=== PATIENT | female | born 1960 | race Caucasian/White ===

== ENCOUNTER 2017-01-18 18:38 | Emergency (ER) | payer OTHER ==
[2017-01-18 18:48] VITALS: BP 108/81; PULSE 90; TEMP 97.5; BMI 20.1
[2017-01-18 20:17] LABS: ALBUMIN 3.5 g/dl (3.4-5.0); ANION GAP 8 (8-16); BILIRUBIN,TOTAL 0.2 mg/dL (0.2-1.0); CALCIUM 8.5 mg/dL (8.5-10.1); CO2 28 mmol/L (21-32); COCKROFT - GAULT 72.3605; CREATININE 0.7 mg/dL (0.55-1.02); GLUCOSE,RANDOM 126 mg/dL (74-106); SGOT/AST 30 U/L (15-37); SGPT/ALT 28 U/L (12-78); TOT PROT 7.8 g/dl (6.4-8.2)
[2017-01-18 20:20] LABS: ALK PHOS 96 U/L (45-117); TROPONIN I < 0.02 ng/ml (0.00-0.05)
[2017-01-18 20:35] LABS: BASOPHIL 0.5 % (0-2.0); EOSINOPHIL 1.1 % (0-4.5); MCH 30.2 pg (25.7-33.7); MCHC 32.8 g/dl (32.0-36.0); MEAN CELL VOLUME 92.2 fl (80-96); MEAN PLT VOLUME 10.8 fl (7.5-11.1); NEUTROPHILS 64.7 % (42.8-82.8); PLATELET COUNT 205 K/MM3 (134-434); RDW 13.2 % (11.6-15.6); WHITE BLOOD COUNT 7.6 K/mm3 (4.0-10.0)
[2017-01-18] MEDS ORDERED: MAG HYDROX/AL HYDROX/SIMETH 30 ML UNIT-DOSE CUP ONE (21:16)
[2017-01-18] MEDS ORDERED: PANTOPRAZOLE SODIUM 40 MG VIAL ONE (21:16)
[2017-01-18] MEDS ORDERED: FAMOTIDINE 20 MG/50 ML IVPB 50 ML IVPB ONE ×2 (21:16→21:31)
[2017-01-18] MEDS ORDERED: ONDANSETRON 4 MG/2 ML VIAL ONE (21:22)
[2017-01-18] MEDS ORDERED: PANTOPRAZOLE SODIUM 40 MG in SODIUM CHLORIDE 100 ML IVPB ONE (21:31)
[2017-01-18] MEDS ORDERED: ONDANSETRON 4 MG/2 ML VIAL IVPUSH ONE (21:31)
[2017-01-18] MEDS ORDERED: MAG HYDROX/AL HYDROX/SIMETH 30 ML UNIT-DOSE CUP PO ONE (21:32)
--- NOTE | 2017-01-18 22:22 | PDOC ---
History of Present Illness - History of Present Illness Initial Comments: 01/18/17 22:23 Patient is a 56 year old female with significant medical hx of GERD who is presenting to the ED with acid reflux intermittently for one year but worsened over the past four days. Patient complains of epigastric burning with radiation to her back. She denies any fever, chills, chest pain, vomiting, or diarrhea. The patient saw her GI specialist four days ago who reportedly changed her medication. Her last endoscopy was 11/2015 which revealed some unspecified inflammation but no H. pylori or ulcers. GI: Kade Rosales MD Surgical Hx: Tubal ligation, aneurysm coiling <Joanne Crews - Last Filed: 01/18/17 23:44> <Socorro Ortega - Last Filed: 01/19/17 00:13> - General Chief Complaint: Pain Stated Complaint: ABDOMINAL PAIN Time Seen by Provider: 01/18/17 19:36 Past History <Joanne Crews - Last Filed: 01/18/17 23:44> - Past Medical History Anemia: No Asthma: No Cancer: No Cardiac Disorders: No COPD: No CHF: No GI Disorders: Yes (gerd) HTN: No Liver Disease: Yes Seizures: Yes (DURING CHILDHOOD) Other medical history: brain aneurysm - Surgical History Abdominal Surgery: Yes (TUBAL LIGATION) Neurologic Surgery: Yes (aneurysm coiling) - Psycho/Social/Smoking Cessation Hx Anxiety: No Suicidal Ideation: No Smoking History: Never smoked Have you smoked in the past 12 months: No Information on smoking cessation initiated: No Hx Alcohol Use: No Drug/Substance Use Hx: No Substance Use Type: None Hx Substance Use Treatment: No <Socorro Ortega - Last Filed: 01/19/17 00:13> - Past Medical History Allergies/Adverse Reactions: Allergies Allergy/AdvReac Type Severity Reaction Status Date / Time ibuprofen [From Advil] Allergy Verified 01/18/17 18:42 peanut Allergy Verified 01/18/17 18:42 Home Medications: Ambulatory Orders Dexlansoprazole [Dexilant] 60 mg PO DAILY 01/18/17 Metoclopramide HCl [Reglan] 5 mg PO AC 01/18/17 Ranitidine [Zantac -] 150 mg PO DAILY #20 tablet 01/19/17 Review of Systems - Review of Systems Comments:: 01/18/17 22:26 CONSTITUTIONAL: Absent: fever, chills, diaphoresis, generalized weakness, malaise, loss of appetite HEENT: Absent: rhinorrhea, nasal congestion, throat pain, throat swelling, difficulty swallowing, mouth swelling, ear pain, eye pain, visual changes CARDIOVASCULAR: Absent: chest pain, syncope, palpitations, irregular heart rate, lightheadedness , peripheral edema RESPIRATORY: Absent: cough, shortness of breath, dyspnea with exertion, orthopnea, wheezing, stridor, hemoptysis GASTROINTESTINAL: Present: epigastric burning Absent: abdominal distension, nausea, vomiting, diarrhea, constipation, melena, hematochezia GENITOURINARY: Absent: dysuria, frequency, urgency, hesitancy, hematuria, flank pain, genital pain MUSCULOSKELETAL: Absent: myalgia, arthralgia, joint swelling SKIN: Absent: rash, itching, pallor HEMATOLOGIC/IMMUNOLOGIC: Absent: easy bleeding, easy bruising, lymphadenopathy, frequent infections ENDOCRINE: Absent: unexplained weight gain, unexplained weight loss, heat intolerance, cold intolerance NEUROLOGIC: Absent: headache, focal weakness or paresthesia, dizziness, unsteady gait, seizure, mental status changes, bladder or bowel incontinence. PSYCHIATRIC: Absent: anxiety, depression, suicidal or homicidal ideation, hallucinations <Joanne Crews - Last Filed: 01/18/17 23:44> *Physical Exam - Vital Signs Last Vital Signs Temp Pulse Resp BP Pulse Ox 97.5 F L 90 18 108/81 100 01/18/17 18:42 01/18/17 18:42 01/18/17 18:42 01/18/17 18:42 01/18/17 18:42 - Physical Exam Comments: 01/18/17 22:27 GENERAL: Well developed, well nourished. Awake and alert. No acute distress. HEENT: Normocephalic, atraumatic. PERRLA, EOMI. No conjunctival pallor. Sclera are non- icteric. Moist mucous membranes. Oropharynx is clear. NECK: Supple. Full ROM. No JVD. Carotid pulses 2+ and symmetric, without bruits. No thyromegaly. No lymphadenopathy. CARDIOVASCULAR: Regular rate and rhythm. No murmurs, rubs, or gallops. Distal pulses are 2+ and symmetric. PULMONARY: No evidence of respiratory distress. Lungs clear to auscultation bilaterally. No wheezing, rales or rhonchi. ABDOMINAL: Soft. Non-tender. Non-distended. No rebound or guarding. No organomegaly. Normoactive bowel sounds. MUSCULOSKELETAL: Normal range of motion at all joints. No bony deformities or tenderness. No CVA tenderness. EXTREMITIES: No cyanosis. No clubbing. No edema. No calf tenderness. SKIN: Warm and dry. Normal capillary refill. No rashes. No jaundice. NEUROLOGICAL: Alert, awake, appropriate. Cranial nerves 2-12 intact. Normal speech. Gait is normal without ataxia. PSYCHIATRIC: Cooperative. Good eye contact. Appropriate mood and affect. <MarsJoanne - Last Filed: 01/18/17 23:44> - Vital Signs Last Vital Signs Temp Pulse Resp BP Pulse Ox 97.5 F L 90 18 108/81 100 01/18/17 18:42 01/18/17 18:42 01/18/17 18:42 01/18/17 18:42 01/18/17 18:42 <Socorro Ortega - Last Filed: 01/19/17 00:13> Heart Score/ECG Review #1 01/18/17 23:44 Poor data quality, interpretation may be adversely affected Normal sinus rhythm at 76 bpm Normal ECG <MarsJoanne - Last Filed: 01/18/17 23:44> ED Treatment Course - LABORATORY CBC & Chemistry Diagram: 01/18/17 19:41 01/18/17 19:45 - ADDITIONAL ORDERS Additional order review: Laboratory Results 01/18/17 19:45 Sodium 140 Potassium 4.2 Chloride 104 Carbon Dioxide 28 Anion Gap 8 BUN 8 D Creatinine 0.7 Creat Clearance w eGFR > 60 Random Glucose 126 H D Calcium 8.5 Total Bilirubin 0.2 AST 30 D ALT 28 D Alkaline Phosphatase 96 D Creatine Kinase 64 Troponin I < 0.02 Total Protein 7.8 Albumin 3.5 Lipase 264 01/18/17 19:41 RBC 3.97 MCV 92.2 MCHC 32.8 RDW 13.2 MPV 10.8 D Neutrophils % 64.7 D Lymphocytes % 26.9 D Monocytes % 6.8 Eosinophils % 1.1 Basophils % 0.5 - RADIOLOGY Radiograph Interpretation: 01/18/17 23:43 Abdomen US Impression: Unremarkable examination. No gallstones are identified. Reported By: Viridiana Tejada MD - Medications Given in the ED: ED Medications Discontinued Medications Generic Name Dose Route Start Last Admin Trade Name Freq PRN Reason Stop Dose Admin Al Hydroxide/Mg Hydroxide 30 ml 01/18/17 21:32 01/18/17 22:07 Mylanta Oral Suspension - PO 01/18/17 21:33 30 ml NOW ONE Administration Pantoprazole Sodium 40 mg/ 100 mls @ 200 mls/hr 01/18/17 21:31 01/18/17 21:31 Sodium Chloride IVPB 01/18/17 22:00 200 mls/hr NOW ONE Administration Famotidine/Sodium Chloride 50 mls @ 100 mls/hr 01/18/17 21:31 01/18/17 21:31 Pepcid 20 Mg Premixed Ivpb - IVPB 01/18/17 22:00 100 mls/hr ONCE ONE Administration Ondansetron HCl 4 mg 01/18/17 21:31 01/18/17 21:32 Zofran Injection IVPUSH 01/18/17 21:32 4 mg NOW ONE Administration <Joanne Crews - Last Filed: 01/18/17 23:44> - LABORATORY CBC & Chemistry Diagram: 01/18/17 19:41 01/18/17 19:45 - ADDITIONAL ORDERS Additional order review: Laboratory Results 01/18/17 19:45 Sodium 140 Potassium 4.2 Chloride 104 Carbon Dioxide 28 Anion Gap 8 BUN 8 D Creatinine 0.7 Creat Clearance w eGFR > 60 Random Glucose 126 H D Calcium 8.5 Total Bilirubin 0.2 AST 30 D ALT 28 D Alkaline Phosphatase 96 D Creatine Kinase 64 Troponin I < 0.02 Total Protein 7.8 Albumin 3.5 Lipase 264 01/18/17 19:41 RBC 3.97 MCV 92.2 MCHC 32.8 RDW 13.2 MPV 10.8 D Neutrophils % 64.7 D Lymphocytes % 26.9 D Monocytes % 6.8 Eosinophils % 1.1 Basophils % 0.5 - RADIOLOGY Radiology Studies Ordered: Category Date Time Status ABDOMEN US -LIMITED [US] Stat Ultrasound 01/18/17 22:18 Ordered - Medications Given in the ED: ED Medications Discontinued Medications Generic Name Dose Route Start Last Admin Trade Name Freq PRN Reason Stop Dose Admin Al Hydroxide/Mg Hydroxide 30 ml 01/18/17 21:32 01/18/17 22:07 Mylanta Oral Suspension - PO 01/18/17 21:33 30 ml NOW ONE Administration Pantoprazole Sodium 40 mg/ 100 mls @ 200 mls/hr 01/18/17 21:31 01/18/17 21:31 Sodium Chloride IVPB 01/18/17 22:00 200 mls/hr NOW ONE Administration Famotidine/Sodium Chloride 50 mls @ 100 mls/hr 01/18/17 21:31 01/18/17 21:31 Pepcid 20 Mg Premixed Ivpb - IVPB 01/18/17 22:00 100 mls/hr ONCE ONE Administration Ondansetron HCl 4 mg 01/18/17 21:31 01/18/17 21:32 Zofran Injection IVPUSH 01/18/17 21:32 4 mg NOW ONE Administration <Socorro Ortega - Last Filed: 01/19/17 00:13> Medical Decision Making - Medical Decision Making 01/18/17 23:29 56-year-old female presents with epigastric burning. She does have a long history of this and has been on medication for.this She saw Dr. Rosales this Tuesday labs reviewed essentially unremarkable abd -US normal gallbladder <Socorro Ortega - Last Filed: 01/19/17 00:13> *DC/Admit/Observation/Transfer - Attestations Scribe Attestion: 01/18/17 22:27 Documentation prepared by Joanne Crews, acting as medical laboratory manager for Socorro Ortega MD. <Joanne Crews - Last Filed: 01/18/17 23:44> <Socorro Ortega - Last Filed: 01/19/17 00:13> Diagnosis at time of Disposition: Epigastric burning sensation - Discharge Dispostion Disposition: HOME Condition at time of disposition: Stable - Prescriptions Prescriptions: Ranitidine [Zantac -] 150 mg PO DAILY #20 tablet - Referrals Referrals: Rustam Jordan MD [Primary Care Provider] - Emmanuel Mendenhall MD [Staff Physician] - Wagner Katz MD [Staff Physician] - - Patient Instructions Printed Discharge Instructions: DI for Gastroesophageal Reflux Disease (GERD) Additional Instructions: please followup with your doctor 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
[2017-01-18] MEDS ORDERED: HYDROmorphone HCL CARPU-JECT 1 MG/1 ML DISP.SYRIN IVPUSH ONE (23:09)
[2017-01-18] MEDS ORDERED: HYDROmorphone HCL CARPU-JECT 1 MG/1 ML DISP.SYRIN ONE (23:23)
--- NOTE | 2017-01-19 12:06 | EKG ---
Test Reason : Blood Pressure : / mmHG Vent. Rate : 076 BPM Atrial Rate : 076 BPM P-R Int : 144 ms QRS Dur : 074 ms QT Int : 376 ms P-R-T Axes : 073 067 071 degrees QTc Int : 423 ms POOR DATA QUALITY, INTERPRETATION MAY BE ADVERSELY AFFECTED NORMAL SINUS RHYTHM NORMAL ECG WHEN COMPARED WITH ECG OF 21-MAY-2016 20:22, VENT. RATE HAS DECREASED BY [address] ELEVATION NOW PRESENT IN INFERIOR LEADS NONSPECIFIC T WAVE ABNORMALITY NO LONGER EVIDENT IN INFERIOR LEADS NONSPECIFIC T WAVE ABNORMALITY NO LONGER EVIDENT IN LATERAL LEADS Confirmed by ARISTEO HANDY, DYLLAN ([id number]) on 01/19/2017 12:05:28 PM Referred By: Confirmed By:DYLLAN ALBERTS MD
== END 2017-01-19 00:20 | disposition home or self-care (01) ==
LOC: JER 18:38
PROC: 3E033GC Introduction of Other Therapeutic Substance into Peripheral Vein, Percutaneous Approach (ICD-10-PCS; principal; 2017-01-18)
PROC: 3E033GC Introduction of Other Therapeutic Substance into Peripheral Vein, Percutaneous Approach (ICD-10-PCS; 2017-01-18)
PROC: 3E033NZ Introduction of Analgesics, Hypnotics, Sedatives into Peripheral Vein, Percutaneous Approach (ICD-10-PCS; 2017-01-18)
PROC: 3E033GC Introduction of Other Therapeutic Substance into Peripheral Vein, Percutaneous Approach (ICD-10-PCS; 2017-01-18)
DX: K21.9 Gastro-esophageal reflux disease without esophagitis (principal); Z86.79 Personal history of other diseases of the circulatory system
CPT/HCPCS: 36415; 76705-TC; 80053; 82550; 83690; 84484; 85025; 93005; 93010; 96365; 96368; 96375; 99283-25

== ENCOUNTER 2017-01-27 08:28 | Inpatient (IN) | payer OTHER ==
[2017-01-27] MEDS ORDERED: FAMOTIDINE 20 MG/50 ML IVPB 20 MG in PREMIX 50 IVPB ONE (09:21)
[2017-01-27] MEDS ORDERED: SODIUM CHLORIDE 1,000 ML IV ONE (09:21)
[2017-01-27] MEDS ORDERED: ONDANSETRON 4 MG/2 ML VIAL IVPB ONE (09:21)
[2017-01-27] MEDS ORDERED: MAG HYDROX/AL HYDROX/SIMETH 355 ML ORAL.SUSP PO ONE (09:21)
--- NOTE | 2017-01-27 09:27 | PDOC ---
History of Present Illness <Kerry Asher - Last Filed: 01/27/17 11:59> - General History Source: Patient Exam Limitations: No Limitations - History of Present Illness Travel History: No Initial Comments: 01/27/17 09:22 56y F hx of GERD, presents with several months of epigastric pain, described as burning/cramping, feels similar to her previous pain that she has had for months and that she has followed up with dr. Rosales. Pt states the pain radiates from her epigastrium to the lower abdomen and up to her chest. Pt states the pain is simlar in nature to what she has felt in the past few months but feels a bit more severe. Pt states her pain is worse after she eats, but is constant. Associated with nausea. No associated fever/chills, vomiting, sob, caba , diarrhea, dysuria,hematuria. JEAN-CLAUDE Rosales PMD [facility] Surgical Hx: Tubal ligation, aneurysm coiling Pt off Plavix and ASA <Wander Mccormick - Last Filed: 01/27/17 16:54> - General Chief Complaint: Pain, Acute Stated Complaint: ABD PAIN Time Seen by Provider: 01/27/17 09:07 Past History <Kerry Asher - Last Filed: 01/27/17 11:59> - Past Medical History Anemia: No Asthma: No Cancer: No Cardiac Disorders: No COPD: No CHF: No GI Disorders: Yes (gerd) HTN: No Liver Disease: Yes Seizures: Yes (DURING CHILDHOOD) - Surgical History Abdominal Surgery: Yes (TUBAL LIGATION) Neurologic Surgery: Yes (aneurysm coiling) - Immunization History Immunization Up to Date: Yes - Psycho/Social/Smoking Cessation Hx Anxiety: No Suicidal Ideation: No Smoking History: Never smoked Have you smoked in the past 12 months: No Information on smoking cessation initiated: No Hx Alcohol Use: No Drug/Substance Use Hx: No Substance Use Type: None Hx Substance Use Treatment: No <Wander Mccormick - Last Filed: 01/27/17 16:54> - Past Medical History Allergies/Adverse Reactions: Allergies Allergy/AdvReac Type Severity Reaction Status Date / Time ibuprofen [From Advil] Allergy Verified 01/27/17 08:55 peanut Allergy Verified 01/27/17 08:55 Home Medications: Ambulatory Orders Dexlansoprazole [Dexilant] 60 mg PO DAILY 01/18/17 Ampicillin Trihydrate [Ampicillin Trihydrate Capsule] 500 mg PO BID 01/27/17 Metoclopramide HCl [Reglan -] 10 mg PO TID 01/27/17 Rifaximin [Xifaxan] 550 mg PO BID 01/27/17 Review of Systems - Review of Systems Able to Perform ROS?: Yes Comments:: 01/27/17 09:28 Constitutional - no reported Fever, Chills, HEENT: no reported vision changes, sore throat Respiratory: no reported cough, sob, hemoptysis Cardiac: no reported chest pain, palpitations, light headedness, leg swelling Abd/GI: +abd pain, nausea, no reported vomiting, blood per rectum, melena, diarrhea : no reported dysuria, frequency, discharge Musculskelatal - no reported back pain, joint swelling skin - no reported bruising, erythema, rash neurological: no reported headache, numbness, focal weakness, tingling, ataxia, hematologic: no reported anemia, easy bruising, easy bleeding <Wander Mccormick - Last Filed: 01/27/17 16:54> *Physical Exam - Vital Signs Last Vital Signs Temp Pulse Resp BP Pulse Ox 97.8 F 88 20 139/81 100 01/27/17 08:55 01/27/17 08:55 01/27/17 08:55 01/27/17 08:55 01/27/17 08:55 <Kerry Asher - Last Filed: 01/27/17 11:59> - Vital Signs Last Vital Signs Temp Pulse Resp BP Pulse Ox 97.8 F 88 20 139/81 100 01/27/17 08:55 01/27/17 08:55 01/27/17 08:55 01/27/17 08:55 01/27/17 08:55 - Physical Exam Comments: 01/27/17 09:29 GENERAL: The patient is awake, alert, and fully oriented, Nontoxic - in no acute distress. HEAD: Normocephalic, atraumatic. EYES: extraocular movements intact, sclera anicteric, conjunctiva clear. ENT: Normal voice, Moist mucous membranes. NECK: Normal range of motion, supple LUNGS: Breath sounds equal, clear to auscultation bilaterally. No wheezes, no rhonchi, no rales. HEART: Regular rate and rhythm, normal S1 and S2 without murmur, rub or gallop. ABDOMEN: Soft, epigastric tenderness, normoactive bowel sounds. No guarding, no rebound. . No CVA tenderness EXTREMITIES: Normal range of motion, no edema. No clubbing or cyanosis. No cords, erythema, or tenderness. NEUROLOGICAL: No facial assymetry, Normal speech, PSYCH: Normal mood, normal affect. SKIN: Warm, Dry, normal turgor, <AnnyWander - Last Filed: 01/27/17 16:54> Heart Score/ECG Review - ECG Impressions Comment:: 01/27/17 11:49 Twelve-lead EKG was performed and reviewed by me. There is normal sinus rhythm with a normal rate. Rate of 80 The axis is normal. The intervals are normal. There is normal R wave progression There are no ST or T wave abnormalities. Impression: Normal twelve-lead EKG <Wander Mccormick - Last Filed: 01/27/17 16:54> ED Treatment Course - LABORATORY CBC & Chemistry Diagram: 01/27/17 09:20 01/27/17 09:20 - ADDITIONAL ORDERS Additional order review: Laboratory Results 01/27/17 01/27/17 09:20 09:20 Sodium 140 Potassium 4.0 Chloride 104 Carbon Dioxide 26 Anion Gap 10 BUN 7 Creatinine 0.7 Creat Clearance w eGFR > 60 Random Glucose 96 D Lactic Acid 0.918 Calcium 8.7 Total Bilirubin 0.4 D AST 24 ALT 28 Alkaline Phosphatase 103 Creatine Kinase 51 Troponin I < 0.02 Total Protein 8.2 Albumin 3.7 Lipase 226 01/27/17 09:20 RBC 4.06 MCV 91.4 MCHC 33.3 RDW 13.2 MPV 9.1 D Neutrophils % 65.8 Lymphocytes % 25.5 Monocytes % 7.2 Eosinophils % 0.6 Basophils % 0.9 - Medications Given in the ED: ED Medications Discontinued Medications Generic Name Dose Route Start Last Admin Trade Name Freq PRN Reason Stop Dose Admin Al Hydroxide/Mg Hydroxide 30 ml 01/27/17 09:21 01/27/17 09:37 Mylanta Suspension - PO 01/27/17 09:22 30 ml ONCE ONE Administration Famotidine/Sodium Chloride 20 50 mls @ 100 mls/hr 01/27/17 09:21 01/27/17 09:37 mg/ Miscellaneous IVPB 01/27/17 09:50 100 mls/hr ONCE ONE Administration Sodium Chloride 1,000 mls @ 1,000 mls/hr 01/27/17 09:21 01/27/17 09:37 Normal Saline - IV 01/27/17 10:20 1,000 mls/hr .Q1H ONE Administration Ondansetron HCl 4 mg 01/27/17 09:21 01/27/17 09:37 Zofran Injection IVPB 01/27/17 09:22 4 mg ONCE ONE Administration <Kerry Asher - Last Filed: 01/27/17 11:59> - LABORATORY CBC & Chemistry Diagram: 01/27/17 09:20 01/27/17 09:20 <AnnyWander schuster - Last Filed: 01/27/17 16:54> Medical Decision Making - Medical Decision Making 01/27/17 10:27 First call placed to Dr. Rosales at 10:27. Awaiting call back. Second call placed to Dr. Rosales at 11:42. Case discussed with Dr. Kang at this time. First call placed to Dr. Oleary at 11:46. Case discussed at this time. <Kerry Asher - Last Filed: 01/27/17 11:59> - Medical Decision Making 01/27/17 09:37 56y F hx of GERD, brain anrysum s/p coiling presents with epigastric pain for the past several months w/ nausea w/o associated f/c, vomiting, diarrhea/melena/ bpr, on exam the pt appears uncomfortable and has mild epigastric tenderness, vitals unremarkable suspect gerd/gastritis will give pepcid/maalox will obtain screening ekg as pt endorses some chest pain consider also pancreatitis will reassess 01/27/17 11:46 labs unremarkable pt still feeling very uncomfortable ekg is NSR case dw. dr. kang (covering dr. Rosales) will discuss with dr. Oleary 01/27/17 16:[address] oleary agree with admission for further management of her abdominal pain Case discussed in detail with admitting physician including history, physical exam and ancillary studies. Admitting physician has assumed care for the patient, will follow all pending diagnostics and will complete the evaluation and treatment. <Wander Mccormick - Last Filed: 01/27/17 16:54> *DC/Admit/Observation/Transfer - Attestations Scribe Attestion: 01/27/17 10:28 Documentation prepared by Kerry Asher, acting as medical psychotherapist for Wander Mccormick MD. <Kerry Asher - Last Filed: 01/27/17 11:59> - Discharge Dispostion Admit: Yes <Wander Mccormick - Last Filed: 01/27/17 16:54> Diagnosis at time of Disposition: Abdominal pain Qualifiers: Abdominal location: epigastric Qualified Code(s): R10.13 - Epigastric pain - Discharge Dispostion Condition at time of disposition: Stable - Referrals Referrals: Rustam Jordan MD [Primary Care Provider] -
[2017-01-27] MEDS ORDERED: FAMOTIDINE 20 MG/50 ML IVPB 50 ML IVPB ONE (09:28)
[2017-01-27] MEDS ORDERED: ONDANSETRON 4 MG/2 ML VIAL ONE (09:28)
[2017-01-27] MEDS ORDERED: MAG HYDROX/AL HYDROX/SIMETH 30 ML UNIT-DOSE CUP ONE (09:28)
[2017-01-27 09:35] LABS: BASOPHIL 0.9 % (0-2.0); EOSINOPHIL 0.6 % (0-4.5); MCH 30.5 pg (25.7-33.7); MCHC 33.3 g/dl (32.0-36.0); MEAN CELL VOLUME 91.4 fl (80-96); MEAN PLT VOLUME 9.1 fl (7.5-11.1); NEUTROPHILS 65.8 % (42.8-82.8); PLATELET COUNT 218 K/MM3 (134-434); RDW 13.2 % (11.6-15.6); WHITE BLOOD COUNT 6.4 K/mm3 (4.0-10.0)
[2017-01-27 10:01] LABS: ALBUMIN 3.7 g/dl (3.4-5.0); ANION GAP 10 (8-16); BILIRUBIN,TOTAL 0.4 mg/dL (0.2-1.0); CALCIUM 8.7 mg/dL (8.5-10.1); CO2 26 mmol/L (21-32); COCKROFT - GAULT 72.3605; CREATININE 0.7 mg/dL (0.55-1.02); GLUCOSE,RANDOM 96 mg/dL (74-106); SGOT/AST 24 U/L (15-37); SGPT/ALT 28 U/L (12-78); TOT PROT 8.2 g/dl (6.4-8.2)
[2017-01-27 10:03] LABS: ALK PHOS 103 U/L (45-117); TROPONIN I < 0.02 ng/ml (0.00-0.05)
[2017-01-27] MEDS ORDERED: morphine CARPU-JECT 4 MG/1 ML DISP.SYRIN IVPUSH ONE ×2 (10:31→16:34)
[2017-01-27] MEDS ORDERED: morphine CARPU-JECT 4 MG/1 ML DISP.SYRIN ONE ×2 (10:32→16:41)
[2017-01-27 10:44] LABS: INR 1.13 (0.82-1.09); PROTHROMBIN TIME (PATIENT) 12.5 SEC (9.98-11.88)
[2017-01-27 11:53] LABS: URINE APPEARANCE CLEAR; URINE BILIRUBIN NEGATIVE (NEGATIVE); URINE BLOOD NEGATIVE (NEGATIVE); URINE COLOR COLORLESS; URINE GLUCOSE (UA) NEGATIVE (NEGATIVE); URINE KETONE NEGATIVE (NEGATIVE); URINE LEUK ESTERASE NEGATIVE (NEGATIVE); URINE NITRITE NEGATIVE (NEGATIVE); URINE PROTEIN NEGATIVE (NEGATIVE); URINE UROBILINOGEN NEGATIVE E.U./dl (0.2-1.0)
--- NOTE | 2017-01-27 13:46 | EKG ---
Test Reason : Blood Pressure : / mmHG Vent. Rate : 080 BPM Atrial Rate : 080 BPM P-R Int : 152 ms QRS Dur : 070 ms QT Int : 374 ms P-R-T Axes : 072 060 053 degrees QTc Int : 431 ms NORMAL SINUS RHYTHM NORMAL ECG WHEN COMPARED WITH ECG OF 18-JAN-2017 20:22, T WAVE AMPLITUDE HAS DECREASED IN INFERIOR LEADS Confirmed by NUNO RATLIFF MD ([id number]) on 01/27/2017 1:46:39 PM Referred By: Confirmed By:NUNO RATLIFF MD
[2017-01-27] MEDS: D5-1/2NS+20 MEQ KCL - 1,000 ML IV SCH (17:19)
[2017-01-27] MEDS: ONDANSETRON 4 MG/2 ML VIAL IVPB PRN (20:49)
[2017-01-27] MEDS: HEPARIN NA (PORCINE) 5,000 UNITS/ML 1ML VIAL SQ SCH (21:00)
[2017-01-27] MEDS: METOCLOPRAMIDE HCL 10 MG TABLET (FP) PO SCH (21:00)
[2017-01-27] MEDS: PANTOPRAZOLE SODIUM 40MG/100 ML IVPB SCH (21:01)
[2017-01-27] MEDS: RIFAXIMIN 550 MG TABLET (UD) PO SCH (22:17)
[2017-01-28] MEDS: D5-1/2NS+20 MEQ KCL - 1,000 ML IV SCH ×2 (04:00→18:28)
[2017-01-28] MEDS: METOCLOPRAMIDE HCL 10 MG TABLET (FP) PO SCH ×3 (06:25→17:31)
[2017-01-28 07:36] LABS: BASOPHIL 0.8 % (0-2.0); MCH 30.7 pg (25.7-33.7); MCHC 33.4 g/dl (32.0-36.0); MEAN CELL VOLUME 91.8 fl (80-96); MEAN PLT VOLUME 9.8 fl (7.5-11.1); PLATELET COUNT 195 K/MM3 (134-434); WHITE BLOOD COUNT 5.2 K/mm3 (4.0-10.0)
[2017-01-28] MEDS: ACETAMINOPHEN 325 MG TABLET (FP) PO PRN ×2 (08:23→21:53)
[2017-01-28 08:34] LABS: ALK PHOS 86 U/L (45-117); AMYLASE 68 U/L (25-115); ANION GAP 8 (8-16); BILIRUBIN,TOTAL 0.6 mg/dL (0.2-1.0); CALCIUM 8.1 mg/dL (8.5-10.1); CO2 28 mmol/L (21-32); COCKROFT - GAULT 71.8335; CREATININE 0.7 mg/dL (0.55-1.02); GLUCOSE,RANDOM 91 mg/dL (74-106); SGOT/AST 19 U/L (15-37); SGPT/ALT 23 U/L (12-78); TOT PROT 6.8 g/dl (6.4-8.2); TROPONIN I < 0.02 ng/ml (0.00-0.05)
[2017-01-28] MEDS: PANTOPRAZOLE SODIUM 40MG/100 ML IVPB SCH ×2 (09:14→21:53)
[2017-01-28] MEDS: HEPARIN NA (PORCINE) 5,000 UNITS/ML 1ML VIAL SQ SCH ×2 (09:14→21:53)
[2017-01-28] MEDS: RIFAXIMIN 550 MG TABLET (UD) PO SCH ×2 (09:14→21:53)
[2017-01-28] MEDS ORDERED: ACETAMINOPHEN 1000 MG/100 ML VIAL (NON FORMULARY) IVPB PRN (09:23)
--- NOTE | 2017-01-28 09:23 | HP ---
Admitting History and Physical - Primary Care Physician PCP: Sage Rodriguez - Admission Chief Complaint: ABDOMINAL PAIN History of Present Illness: 56y F hx of GERD, presents with several months of epigastric pain, described as burning/cramping, feels similar to her previous pain that she has had for months and that she has followed up with dr. Rsoales. Pt states the pain radiates from her epigastrium to the lower abdomen and up to her chest. Pt states the pain is simlar in nature to what she has felt in the past few months but feels a bit more severe. Pt states her pain is worse after she eats, but is constant. Associated with nausea. No associated fever/chills, vomiting, sob, caba , diarrhea, dysuria,hematuria. 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 No: Neurogenic Bladder, Renal Calculi - Past Surgical History Past Surgical History: Yes: Tonsillectomy - Smoking History Smoking history: Never smoked Have you smoked in the past 12 months: No - Alcohol/Substance Use Hx Alcohol Use: No - Social History ADL: Independent History of Recent Travel: Yes ([place] 1 month ago, [place] 2 months ago) Home Medications - Allergies Allergies/Adverse Reactions: Allergies Allergy/AdvReac Type Severity Reaction Status Date / Time ibuprofen [From Advil] Allergy Verified 01/27/17 08:55 peanut Allergy Verified 01/27/17 08:55 - Home Medications Home Medications: Ambulatory Orders Dexlansoprazole [Dexilant] 60 mg PO DAILY 01/18/17 Ampicillin Trihydrate [Ampicillin Trihydrate Capsule] 500 mg PO BID 01/27/17 Metoclopramide HCl [Reglan -] 10 mg PO TID 01/27/17 Rifaximin [Xifaxan] 550 mg PO BID 01/27/17 Family Disease History - Family Disease History Family Disease History: Heart Disease: Mother (CVAx2, HTN, Depression), Other: Mother, Sister (CVAx3), Daughter (? Meningitis) Review of Systems - Review of Systems Constitutional: reports: Loss of Appetite, Malaise, Weakness Eyes: reports: No Symptoms HENT: reports: No Symptoms Neck: reports: No Symptoms Cardiovascular: reports: No Symptoms Respiratory: reports: No Symptoms Gastrointestinal: reports: Abdominal Pain, Dysphagia, Indigestion, Nausea Genitourinary: reports: No Symptoms Musculoskeletal: reports: No Symptoms Integumentary: reports: No Symptoms Neurological: reports: No Symptoms Endocrine: reports: No Symptoms Hematology/Lymphatic: reports: No Symptoms Psychiatric: reports: No Symptoms Physical Examination Vital Signs: Vital Signs Temperature 98.4 F 01/28/17 08:19 Pulse Rate 81 01/28/17 08:19 Respiratory Rate 20 01/28/17 08:19 Blood Pressure 128/72 01/28/17 08:19 O2 Sat by Pulse Oximetry (%) 98 01/27/17 21:30 Constitutional: Yes: Moderate Distress Eyes: Yes: WNL HENT: Yes: WNL Neck: Yes: WNL Cardiovascular: Yes: WNL Respiratory: Yes: WNL Gastrointestinal: Yes: Tenderness Renal/: Yes: WNL Musculoskeletal: Yes: WNL Extremities: Yes: WNL Edema: No Peripheral Pulses WNL: Yes Integumentary: Yes: WNL Wound/Incision: Yes: Clean/Dry Neurological: Yes: WNL ...Motor Strength: WNL Psychiatric: Yes: WNL Labs: CBC, BMP 01/28/17 06:20 01/28/17 06:20 Imaging - Results Cat Scan: Report Reviewed Problem List - Problems (1) Abdominal pain Code(s): R10.9 - UNSPECIFIED ABDOMINAL PAIN Qualifiers: Abdominal location: epigastric Qualified Code(s): R10.13 - Epigastric pain (2) Cerebral aneurysm Assessment/Plan: OLD/STABLE Code(s): I67.1 - CEREBRAL ANEURYSM, NONRUPTURED (3) Epigastric burning sensation Code(s): R10.13 - EPIGASTRIC PAIN Assessment/Plan PROTONIX BID GI AND SURGERY EVAL COLON WALL EDEMA IV ABX? WILL DISCUSS WITH GI AND SURGERY EGD RESULTS FROM DR CHUNG OFFICE DVT PROPHYLAXIS
[2017-01-28 11:09] LABS: C-REACTIVE PROTEIN < 0.3 MG/DL (0.00-0.3)
[2017-01-28] MEDS: morphine CARPU-JECT 4 MG/1 ML DISP.SYRIN IVPUSH PRN (15:06)
--- NOTE | 2017-01-28 16:31 | CONSULT ---
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 No: Neurogenic Bladder, Renal Calculi - Past Surgical History Past Surgical History: Yes: Tonsillectomy - Alcohol/Substance Use Hx Alcohol Use: No - Smoking History Smoking history: Never smoked Have you smoked in the past 12 months: No - Social History ADL: Independent History of Recent Travel: Yes ([place] 1 month ago, [place] 2 months ago) Home Medications - Allergies Allergies/Adverse Reactions: Allergies Allergy/AdvReac Type Severity Reaction Status Date / Time ibuprofen [From Advil] Allergy Verified 01/27/17 08:55 peanut Allergy Verified 01/27/17 08:55 - Home Medications Home Medications: Ambulatory Orders Dexlansoprazole [Dexilant] 60 mg PO DAILY 01/18/17 Ampicillin Trihydrate [Ampicillin Trihydrate Capsule] 500 mg PO BID 01/27/17 Metoclopramide HCl [Reglan -] 10 mg PO TID 01/27/17 Rifaximin [Xifaxan] 550 mg PO BID 01/27/17 Family Disease History - Family Disease History Family Disease History: Heart Disease: Mother (CVAx2, HTN, Depression), Other: Mother, Sister (CVAx3), Daughter (? Meningitis) Review of Systems - Review of Systems Constitutional: denies: Chills, Fever Neck: reports: No Symptoms Cardiovascular: denies: Chest Pain Respiratory: denies: Cough Gastrointestinal: reports: Abdominal Pain, Nausea. denies: Diarrhea, Vomiting Neurological: denies: Change in LOC Pain Intensity: 3 Physical Exam Vital Signs: Vital Signs Temperature 98.4 F 01/28/17 08:19 Pulse Rate 81 01/28/17 08:19 Respiratory Rate 20 01/28/17 08:19 Blood Pressure 128/72 01/28/17 08:19 O2 Sat by Pulse Oximetry (%) 98 01/27/17 21:30 Constitutional: Yes: No Distress, Calm Neck: Yes: Supple Cardiovascular: Yes: Regular Rate and Rhythm Respiratory: Yes: CTA Bilaterally Gastrointestinal: Yes: Soft, Tenderness, Epigastrium. No: Distention, Tenderness, Rebound Extremities: Yes: WNL Neurological: Yes: Alert, Oriented Labs: CBC, BMP 01/28/17 06:20 01/28/17 06:20 Imaging - Results Cat Scan: Report Reviewed, Image Reviewed Problem List - Problems (1) Abdominal pain Code(s): R10.9 - UNSPECIFIED ABDOMINAL PAIN Qualifiers: Abdominal location: epigastric Qualified Code(s): R10.13 - Epigastric pain Assessment/Plan 56 female with chronic epigastric pain No gross pathology seen on CT Colon wall edema on prior imaging- currently no thickening Labs WNL GI evaluation- obtain EGD report PPI Pain control No reason for surgical intervention at this time
--- NOTE | 2017-01-28 17:09 | CON.GI ---
Consult Consult Specialty:: GI Referred by:: Dr Mart Reason for Consultation:: Abdominal pain - History of Present Illness Chief Complaint: abdominal pain History of Present Illness: 56 F with h/o brain aneurysm clipped last year with no residual deficit, h/o liver problem that she state resolved now with 2 months of abdominal pain. She states the pain is diffuse and not extreme but uncomfortable. Normal bowel habits. Was slated for colonoscopy but landed here first. Of note, she states that she is post-menopausal but still gets pain that is similar to the pain she got when she had her perioid. Rec MRI with po contrast to better evaluate the bowel and minimize radiation exposure. 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 No: Neurogenic Bladder, Renal Calculi - Past Surgical History Past Surgical History: Yes: Tonsillectomy - Alcohol/Substance Use Hx Alcohol Use: No - Smoking History Smoking history: Never smoked Have you smoked in the past 12 months: No - Social History ADL: Independent History of Recent Travel: Yes ([place] 1 month ago, [place] 2 months ago) Home Medications - Allergies Allergies/Adverse Reactions: Allergies Allergy/AdvReac Type Severity Reaction Status Date / Time ibuprofen [From Advil] Allergy Verified 01/27/17 08:55 peanut Allergy Verified 01/27/17 08:55 - Home Medications Home Medications: Ambulatory Orders Dexlansoprazole [Dexilant] 60 mg PO DAILY 01/18/17 Ampicillin Trihydrate [Ampicillin Trihydrate Capsule] 500 mg PO BID 01/27/17 Metoclopramide HCl [Reglan -] 10 mg PO TID 01/27/17 Rifaximin [Xifaxan] 550 mg PO BID 01/27/17 Family Disease History - Family Disease History Family Disease History: Heart Disease: Mother (CVAx2, HTN, Depression), Other: Mother, Sister (CVAx3), Daughter (? Meningitis) Physical Exam-GI Vital Signs: Vital Signs Temperature 98.4 F 01/28/17 08:19 Pulse Rate 81 01/28/17 08:19 Respiratory Rate 20 01/28/17 08:19 Blood Pressure 128/72 01/28/17 08:19 O2 Sat by Pulse Oximetry (%) 98 01/27/17 21:30 Constitutional: Yes: Well Nourished, Anxious, Moderate Distress HENT: Yes: Normocephalic Neck: Yes: Supple Cardiovascular: Yes: Regular Rate and Rhythm Respiratory: Yes: CTA Bilaterally Gastrointestinal Inspection: Yes: WNL ...Auscultate: Yes: Hyperactive Bowel Sounds (high pitched sounds noted) ...Palpate: Yes: Soft, Tenderness (diffusely with no rebound) Labs: CBC, BMP 01/28/17 06:20 01/28/17 06:20 INR, PTT INR 1.13 (0.82-1.09) 01/27/17 09:20 Hepatic Panel Total Bilirubin 0.6 mg/dL (0.2-1.0) D 01/28/17 06:20 AST 19 U/L (15-37) D 01/28/17 06:20 ALT 23 U/L (12-78) 01/28/17 06:20 Alkaline Phosphatase 86 U/L (45-117) 01/28/17 06:20 Albumin 3.0 g/dl (3.4-5.0) L 01/28/17 06:20 Abnormal Lab Results 01/28/17 01/28/17 06:20 06:20 Lymphocytes % 43.9 H D BUN 5 L D Calcium 8.1 L Albumin 3.0 L Imaging - Results Cat Scan: Report Reviewed (No oral contrast. Essentially normal scan.) Assessment/Plan 56 patient with above history, admitted with abdominal pain. Seen by our practice sched to return for procedure (outpat) but unable to make it. Rec MRI with po contrast to better evaluate the bowel and minimize radiation exposure. She has fibroid uterus on CT and might benefit from [employer] eval BW essentially normal Follow labs. PPI at this time
[2017-01-29] MEDS: METOCLOPRAMIDE HCL 10 MG TABLET (FP) PO SCH ×2 (06:50→13:32)
[2017-01-29] MEDS ORDERED: PT OWN MED DRAWER 7, Y5N ONE ×2 (08:59→19:21)
[2017-01-29] MEDS: morphine CARPU-JECT 4 MG/1 ML DISP.SYRIN IVPUSH PRN ×2 (09:09→19:23)
[2017-01-29] MEDS: ONDANSETRON 4 MG/2 ML VIAL IVPB PRN ×2 (09:09→18:05)
[2017-01-29] MEDS: PANTOPRAZOLE SODIUM 40MG/100 ML IVPB SCH ×2 (09:10→22:00)
[2017-01-29] MEDS: HEPARIN NA (PORCINE) 5,000 UNITS/ML 1ML VIAL SQ SCH ×2 (09:10→21:59)
[2017-01-29] MEDS: RIFAXIMIN 550 MG TABLET (UD) PO SCH ×2 (09:11→22:00)
--- NOTE | 2017-01-29 10:00 | PN ---
Progress Note, Physician Chief Complaint: COMFORTABLE NOW AFTER MORPHINE INJECTION CONSULTS REVIEWED - Current Medication List Current Medications: Active Medications Acetaminophen (Tylenol -) 650 mg PO Q4H PRN PRN Reason: FEVER OR PAIN Last Admin: 01/28/17 21:53 Dose: 650 mg Acetaminophen (Ofirmev Injection -) 1,000 mg IVPB Q6H PRN PRN Reason: FEVER OR PAIN Stop: 01/29/17 03:24 Heparin Sodium (Porcine) (Heparin -) 5,000 unit SQ BID [facility] Last Admin: 01/29/17 09:10 Dose: 5,000 unit Pantoprazole Sodium (Protonix 40mg Ivpb (Pre-Docked)) 100 mls @ 200 mls/hr IVPB BID [facility] Last Admin: 01/29/17 09:10 Dose: 200 mls/hr Potassium Chloride/Dextrose/Sod Cl (D5-1/2ns+20 Meq Kcl -) 1,000 mls @ 75 mls/ hr IV ASDIR [facility] Last Admin: 01/28/17 18:28 Dose: Not Given Metoclopramide HCl (Reglan -) 10 mg PO TIDAC [facility] Last Admin: 01/29/17 06:50 Dose: 10 mg Morphine Sulfate (Morphine Injection -) 4 mg IVPUSH Q6H PRN PRN Reason: PAIN Last Admin: 01/29/17 09:09 Dose: 4 mg Ondansetron HCl (Zofran Injection) 4 mg IVPB Q6H PRN PRN Reason: NAUSEA Last Admin: 01/29/17 09:09 Dose: 4 mg Rifaximin (Xifaxan -) 550 mg PO BID [facility] Last Admin: 01/29/17 09:11 Dose: 550 mg - Objective Vital Signs: Vital Signs Temperature 97.8 F 01/29/17 06:37 Pulse Rate 65 01/29/17 06:37 Respiratory Rate 18 01/29/17 06:37 Blood Pressure 115/72 01/29/17 06:37 O2 Sat by Pulse Oximetry (%) 96 01/28/17 21:00 Constitutional: Yes: Mild Distress Eyes: Yes: WNL HENT: Yes: WNL Neck: Yes: WNL Cardiovascular: Yes: WNL Respiratory: Yes: WNL Gastrointestinal: Yes: Tenderness Genitourinary: Yes: WNL Musculoskeletal: Yes: WNL Extremities: Yes: WNL Edema: No Peripheral Pulses WNL: Yes Integumentary: Yes: WNL Wound/Incision: Yes: Clean/Dry Neurological: Yes: WNL ...Motor Strength: WNL Psychiatric: Yes: WNL Labs: CBC, BMP 01/28/17 06:20 01/28/17 06:20 INR, PTT INR 1.13 (0.82-1.09) 01/27/17 09:20 Problem List - Problems (1) Abdominal pain Code(s): R10.9 - UNSPECIFIED ABDOMINAL PAIN Qualifiers: Abdominal location: epigastric Qualified Code(s): R10.13 - Epigastric pain (2) Cerebral aneurysm Code(s): I67.1 - CEREBRAL ANEURYSM, NONRUPTURED (3) Epigastric burning sensation Code(s): R10.13 - EPIGASTRIC PAIN Assessment/Plan MRI ABD ORDERED WITH CONTRAST PROTONIX BID GI AND SURGERY EVAL COLON WALL EDEMA IV ABX? WILL DISCUSS WITH GI AND SURGERY EGD RESULTS FROM DR CHUNG OFFICE DVT PROPHYLAXIS
--- NOTE | 2017-01-29 14:56 | PN ---
GI Progress Note Subjective: Ongoing diffuse abdominal pain still present. No point tenderness Hungry-wants food. BW and CT negative - Objective Vital Signs: Vital Signs Temperature 98.7 F 01/29/17 13:54 Pulse Rate 60 01/29/17 13:54 Respiratory Rate 18 01/29/17 13:54 Blood Pressure 118/72 01/29/17 13:54 O2 Sat by Pulse Oximetry (%) 96 01/28/17 21:00 Labs: CBC, BMP 01/28/17 06:20 01/28/17 06:20 INR, PTT INR 1.13 (0.82-1.09) 01/27/17 09:20 Assessment/Plan Awaiting MRI ? carcinomatosis Will check tumor markers and MR when available Start light diet
[2017-01-29] MEDS: D5-1/2NS+20 MEQ KCL - 1,000 ML IV SCH (19:27)
[2017-01-30 08:04] LABS: MCH 30.6 pg (25.7-33.7); MCHC 33.2 g/dl (32.0-36.0); MEAN PLT VOLUME 10.2 fl (7.5-11.1); PLATELET COUNT 198 K/MM3 (134-434); RDW 12.7 % (11.6-15.6); WHITE BLOOD COUNT 5.9 K/mm3 (4.0-10.0)
[2017-01-30 08:37] LABS: ALBUMIN 3.1 g/dl (3.4-5.0); ALK PHOS 90 U/L (45-117); ANION GAP 10 (8-16); BILIRUBIN,TOTAL 0.2 mg/dL (0.2-1.0); CALCIUM 8.4 mg/dL (8.5-10.1); CO2 29 mmol/L (21-32); CREATININE 0.8 mg/dL (0.55-1.02); GLUCOSE,RANDOM 90 mg/dL (74-106); SGOT/AST 34 U/L (15-37); SGPT/ALT 29 U/L (12-78); TOT PROT 6.8 g/dl (6.4-8.2)
[2017-01-30] MEDS: ONDANSETRON 4 MG/2 ML VIAL IVPB PRN (09:48)
[2017-01-30] MEDS: RIFAXIMIN 550 MG TABLET (UD) PO SCH ×2 (09:49→21:38)
[2017-01-30] MEDS: morphine CARPU-JECT 4 MG/1 ML DISP.SYRIN IVPUSH PRN (09:49)
[2017-01-30] MEDS: HEPARIN NA (PORCINE) 5,000 UNITS/ML 1ML VIAL SQ SCH ×2 (09:50→21:37)
[2017-01-30] MEDS: PANTOPRAZOLE SODIUM 40MG/100 ML IVPB SCH ×2 (09:51→21:38)
--- NOTE | 2017-01-30 14:29 | PN ---
GI Progress Note Subjective: Still with pain. Family present. Taking some po - Objective Vital Signs: Vital Signs Temperature 98.7 F 01/30/17 02:00 Pulse Rate 74 01/30/17 02:00 Respiratory Rate 18 01/30/17 02:00 Blood Pressure 127/78 01/30/17 02:00 O2 Sat by Pulse Oximetry (%) 98 01/29/17 21:00 Constitutional: Thin HENT: Yes: Normocephalic Neck: Yes: Supple Cardiovascular: Yes: Regular Rate and Rhythm Respiratory: Yes: CTA Bilaterally Gastrointestinal Inspection: Yes: WNL ...Auscultate: Yes: Normoactive Bowel Sounds ...Palpate: Yes: Soft, Tenderness (diffuse-unchanged) Labs: CBC, BMP 01/30/17 06:00 01/30/17 06:00 INR, PTT INR 1.13 (0.82-1.09) 01/27/17 09:20 Hepatic Panel Total Bilirubin 0.2 mg/dL (0.2-1.0) D 01/30/17 06:00 AST 34 U/L (15-37) D 01/30/17 06:00 ALT 29 U/L (12-78) D 01/30/17 06:00 Alkaline Phosphatase 90 U/L (45-117) 01/30/17 06:00 Albumin 3.1 g/dl (3.4-5.0) L 01/30/17 06:00 - ....Imaging Ultrasound: Pending Assessment/Plan Awaiting MRI ? carcinomatosis Will check tumor markers when results available and MR when available Start light diet Will do EGD and colon tomorrow Prep today If GI w/u negative, consider re-consulting surgery for exploratory lap
[2017-01-30] MEDS ORDERED: POLYETHYLENE GLYCOL 3350 255 GM BTL PO ONE (14:34)
[2017-01-30] MEDS: BISACODYL 5 MG TABLET.DR (FP) PO SCH ×2 (17:26→21:37)
[2017-01-30] MEDS: D5-1/2NS+20 MEQ KCL - 1,000 ML IV SCH (17:40)
--- NOTE | 2017-01-30 18:42 | PN ---
Progress Note, Physician Chief Complaint: AWAKE DAUGHTER BEDSIDE STILL WITH ABD PAIN NPO IVF ONLY - Current Medication List Current Medications: Active Medications Acetaminophen (Tylenol -) 650 mg PO Q4H PRN PRN Reason: FEVER OR PAIN Last Admin: 01/28/17 21:53 Dose: 650 mg Bisacodyl (Dulcolax -) 10 mg PO BID [facility] Last Admin: 01/30/17 17:26 Dose: 10 mg Heparin Sodium (Porcine) (Heparin -) 5,000 unit SQ BID [facility] Last Admin: 01/30/17 09:50 Dose: 5,000 unit Pantoprazole Sodium (Protonix 40mg Ivpb (Pre-Docked)) 100 mls @ 200 mls/hr IVPB BID [facility] Last Admin: 01/30/17 09:51 Dose: 200 mls/hr Potassium Chloride/Dextrose/Sod Cl (D5-1/2ns+20 Meq Kcl -) 1,000 mls @ 75 mls/ hr IV ASDIR [facility] Last Admin: 01/30/17 17:40 Dose: Not Given Morphine Sulfate (Morphine Injection -) 4 mg IVPUSH Q6H PRN PRN Reason: PAIN Last Admin: 01/30/17 09:49 Dose: 4 mg Ondansetron HCl (Zofran Injection) 4 mg IVPB Q6H PRN PRN Reason: NAUSEA Last Admin: 01/30/17 09:48 Dose: 4 mg Rifaximin (Xifaxan -) 550 mg PO BID [facility] Last Admin: 01/30/17 09:49 Dose: 550 mg - Objective Vital Signs: Vital Signs Temperature 98.3 F 01/30/17 18:31 Pulse Rate 72 01/30/17 18:31 Respiratory Rate 18 01/30/17 18:31 Blood Pressure 113/70 01/30/17 18:31 O2 Sat by Pulse Oximetry (%) 97 01/30/17 10:00 Constitutional: Yes: Mild Distress Eyes: Yes: WNL HENT: Yes: WNL Neck: Yes: WNL Cardiovascular: Yes: WNL Respiratory: Yes: WNL Gastrointestinal: Yes: Tenderness Genitourinary: Yes: WNL Musculoskeletal: Yes: WNL Extremities: Yes: WNL Edema: No Integumentary: Yes: WNL Wound/Incision: Yes: Clean/Dry Neurological: Yes: WNL ...Motor Strength: WNL Psychiatric: Yes: Agitated Labs: CBC, BMP 01/30/17 06:00 01/30/17 06:00 INR, PTT INR 1.13 (0.82-1.09) 01/27/17 09:20 Problem List - Problems (1) Abdominal pain Code(s): R10.9 - UNSPECIFIED ABDOMINAL PAIN Qualifiers: Abdominal location: epigastric Qualified Code(s): R10.13 - Epigastric pain (2) Cerebral aneurysm Code(s): I67.1 - CEREBRAL ANEURYSM, NONRUPTURED (3) Epigastric burning sensation Code(s): R10.13 - EPIGASTRIC PAIN Assessment/Plan AWAITING MRI PAIN MEDS ANXIETY? START ZOLOFT NOW
[2017-01-30] MEDS: SERTRALINE HCL 25 MG TABLET (FP) PO SCH (21:38)
--- NOTE | 2017-01-31 08:47 | PN ---
Progress Note, Physician History of Present Illness: c/o abdominal pain - Current Medication List Current Medications: Active Medications Acetaminophen (Tylenol -) 650 mg PO Q4H PRN PRN Reason: FEVER OR PAIN Last Admin: 01/28/17 21:53 Dose: 650 mg Bisacodyl (Dulcolax -) 10 mg PO BID [facility] Last Admin: 01/30/17 21:37 Dose: 10 mg Heparin Sodium (Porcine) (Heparin -) 5,000 unit SQ BID [facility] Last Admin: 01/30/17 21:37 Dose: 5,000 unit Pantoprazole Sodium (Protonix 40mg Ivpb (Pre-Docked)) 100 mls @ 200 mls/hr IVPB BID [facility] Last Admin: 01/30/17 21:38 Dose: 200 mls/hr Potassium Chloride/Dextrose/Sod Cl (D5-1/2ns+20 Meq Kcl -) 1,000 mls @ 75 mls/ hr IV ASDIR [facility] Last Admin: 01/30/17 17:40 Dose: Not Given Morphine Sulfate (Morphine Injection -) 4 mg IVPUSH Q6H PRN PRN Reason: PAIN Last Admin: 01/30/17 09:49 Dose: 4 mg Ondansetron HCl (Zofran Injection) 4 mg IVPB Q6H PRN PRN Reason: NAUSEA Last Admin: 01/30/17 09:48 Dose: 4 mg Rifaximin (Xifaxan -) 550 mg PO BID [facility] Last Admin: 01/30/17 21:38 Dose: 550 mg Sertraline HCl (Zoloft -) 25 mg PO DAILY [facility] Last Admin: 01/30/17 21:38 Dose: 25 mg - Objective Vital Signs: Vital Signs Temperature 98.3 F 01/31/17 05:49 Pulse Rate 63 01/31/17 05:49 Respiratory Rate 18 01/31/17 05:49 Blood Pressure 103/63 01/31/17 05:49 O2 Sat by Pulse Oximetry (%) 98 01/30/17 21:00 Cardiovascular: Yes: Regular Rate and Rhythm Respiratory: Yes: Regular, CTA Bilaterally Gastrointestinal: Yes: Normal Bowel Sounds, Soft, Tenderness, Epigastrium Labs: CBC, BMP 01/30/17 06:00 01/30/17 06:00 INR, PTT INR 1.13 (0.82-1.09) 01/27/17 09:20 Problem List - Problems (1) Abdominal pain Assessment/Plan: for egd and colon Code(s): R10.9 - UNSPECIFIED ABDOMINAL PAIN Qualifiers: Abdominal location: epigastric Qualified Code(s): R10.13 - Epigastric pain (2) Leiomyoma 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
[2017-01-31] MEDS: HEPARIN NA (PORCINE) 5,000 UNITS/ML 1ML VIAL SQ SCH ×2 (09:53→21:20)
[2017-01-31] MEDS ORDERED: PT OWN MED DRAWER 7, Y5N ONE (09:56)
[2017-01-31] MEDS: BISACODYL 5 MG TABLET.DR (FP) PO SCH ×2 (10:00→21:20)
[2017-01-31] MEDS: D5-1/2NS+20 MEQ KCL - 1,000 ML IV SCH ×2 (10:03→17:49)
[2017-01-31] MEDS: PANTOPRAZOLE SODIUM 40MG/100 ML IVPB SCH ×2 (10:06→21:21)
[2017-01-31] MEDS: ACETAMINOPHEN 325 MG TABLET (FP) PO PRN (10:10)
[2017-01-31] MEDS: SERTRALINE HCL 25 MG TABLET (FP) PO SCH (10:10)
[2017-01-31] MEDS: RIFAXIMIN 550 MG TABLET (UD) PO SCH ×2 (10:10→21:21)
--- NOTE | 2017-01-31 13:20 | CON.OBG ---
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 No: Neurogenic Bladder, Renal Calculi - Past Surgical History Past Surgical History: Yes: Tonsillectomy - Alcohol/Substance Use Hx Alcohol Use: No History of Substance Use: reports: None - Smoking History Smoking history: Never smoked Have you smoked in the past 12 months: No - Social History ADL: Independent History of Recent Travel: Yes ([place] 1 month ago, [place] 2 months ago) Home Medications - Allergies Allergies/Adverse Reactions: Allergies Allergy/AdvReac Type Severity Reaction Status Date / Time ibuprofen [From Advil] Allergy Verified 01/27/17 08:55 peanut Allergy Verified 01/27/17 08:55 - Home Medications Home Medications: Ambulatory Orders Dexlansoprazole [Dexilant] 60 mg PO DAILY 01/18/17 Ampicillin Trihydrate [Ampicillin Trihydrate Capsule] 500 mg PO BID 01/27/17 Metoclopramide HCl [Reglan -] 10 mg PO TID 01/27/17 Rifaximin [Xifaxan] 550 mg PO BID 01/27/17 Family Disease History - Family Disease History Family Disease History: Heart Disease: Mother (CVAx2, HTN, Depression), Other: Mother, Sister (CVAx3), Daughter (? 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: Vital Signs Temperature 98.4 F 01/31/17 09:52 Pulse Rate 71 01/31/17 09:52 Respiratory Rate 20 01/31/17 09:52 Blood Pressure 125/9 01/31/17 09:52 O2 Sat by Pulse Oximetry (%) 99 01/31/17 09:00 Constitutional: Yes: Well Nourished, No Distress Gastrointestinal: Yes: Soft, Tenderness Pelvis: Yes: WNL External Genitalia: Yes: Normal Vaginal Exam: Yes: Normal Cervix: Yes: Normal Uterus: Yes: Enlarged Adnexa: Normal: Left, Right ....Post : Yes: Uterus firm, Uterus non-tender Breast(s): Yes: WNL Musculoskeletal: Yes: WNL Extremities: Yes: WNL Edema: No Labs: CBC, BMP 01/30/17 06:00 01/30/17 06:00 Problem List - Problems (1) Abdominal pain Code(s): R10.9 - UNSPECIFIED ABDOMINAL PAIN Qualifiers: Abdominal location: epigastric Qualified Code(s): R10.13 - Epigastric pain (2) Leiomyoma Code(s): D21.9 - BENIGN NEOPLASM OF CONNECTIVE AND OTHER SOFT TISSUE, UNSP Assessment/Plan Abd Pain upper abdomen epigastric Chronic GI problem Leiomyomatous Uterus - stable no signs of skate boarder pathology needing surgery Direct Service Professional 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
[2017-01-31] MEDS ORDERED: LIDOCAINE HCL 2% (20ML MULTI-DOSE VIAL) NR ONE (13:47)
[2017-01-31] MEDS ORDERED: PROPOFOL 20 ML ONE ×3 (13:47)
[2017-01-31] MEDS ORDERED: ONDANSETRON 4 MG/2 ML VIAL ONE (15:34)
--- NOTE | 2017-01-31 16:06 | PN ---
Progress Note (short form) - Note Progress Note: ADDENDUM: S/P EGD and colonoscopy. Inflammtion was noted in the duodenum. Otherwise negative procedures Rec: Gluten free diet Celiac serologies-f/u Barring unforeseen circumstances can d/c with outpatient f/u I will see her within the next few weeks
[2017-01-31] MEDS: morphine CARPU-JECT 4 MG/1 ML DISP.SYRIN IVPUSH PRN (17:47)
[2017-02-01] MEDS: morphine CARPU-JECT 4 MG/1 ML DISP.SYRIN IVPUSH PRN ×2 (06:37→21:20)
[2017-02-01] MEDS: D5-1/2NS+20 MEQ KCL - 1,000 ML IV SCH (06:41)
--- NOTE | 2017-02-01 08:44 | PN ---
Progress Note, Physician History of Present Illness: c/o abdominal pain - Current Medication List Current Medications: Active Medications Acetaminophen (Tylenol -) 650 mg PO Q4H PRN PRN Reason: FEVER OR PAIN Last Admin: 01/31/17 10:10 Dose: 650 mg Bisacodyl (Dulcolax -) 10 mg PO BID [facility] Last Admin: 01/31/17 21:20 Dose: Not Given Heparin Sodium (Porcine) (Heparin -) 5,000 unit SQ BID [facility] Last Admin: 01/31/17 21:20 Dose: 5,000 unit Pantoprazole Sodium (Protonix 40mg Ivpb (Pre-Docked)) 100 mls @ 200 mls/hr IVPB BID [facility] Last Admin: 01/31/17 21:21 Dose: 200 mls/hr Potassium Chloride/Dextrose/Sod Cl (D5-1/2ns+20 Meq Kcl -) 1,000 mls @ 75 mls/ hr IV ASDIR [facility] Last Admin: 02/01/17 06:41 Dose: 75 mls/hr Morphine Sulfate (Morphine Injection -) 4 mg IVPUSH Q6H PRN PRN Reason: PAIN Last Admin: 02/01/17 06:37 Dose: 4 mg Ondansetron HCl (Zofran Injection) 4 mg IVPB Q6H PRN PRN Reason: NAUSEA Last Admin: 01/30/17 09:48 Dose: 4 mg Rifaximin (Xifaxan -) 550 mg PO BID [facility] Last Admin: 01/31/17 21:21 Dose: 550 mg Sertraline HCl (Zoloft -) 25 mg PO DAILY [facility] Last Admin: 01/31/17 10:10 Dose: 25 mg - Objective Vital Signs: Vital Signs Temperature 98.6 F 02/01/17 06:00 Pulse Rate 69 02/01/17 06:00 Respiratory Rate 20 02/01/17 06:00 Blood Pressure 131/65 02/01/17 06:00 O2 Sat by Pulse Oximetry (%) 99 01/31/17 21:00 Cardiovascular: Yes: Regular Rate and Rhythm Respiratory: Yes: Regular, CTA Bilaterally Gastrointestinal: Yes: Normal Bowel Sounds, Soft, Tenderness, Epigastrium Labs: CBC, BMP 01/30/17 06:00 01/30/17 06:00 INR, PTT INR 1.13 (0.82-1.09) 01/27/17 09:20 Problem List - Problems (1) Abdominal pain Assessment/Plan: S/P EGD AND COLON AWAIT BIOPSY CONTINUES WITH NAUSEA ADD REGLAN AWAIT MRI Code(s): R10.9 - UNSPECIFIED ABDOMINAL PAIN Qualifiers: Abdominal location: epigastric Qualified Code(s): R10.13 - Epigastric pain
[2017-02-01] MEDS ORDERED: PT OWN MED DRAWER 7, Y5N ONE ×2 (09:23→20:37)
[2017-02-01] MEDS: ONDANSETRON 4 MG/2 ML VIAL IVPB PRN (09:28)
[2017-02-01] MEDS: BISACODYL 5 MG TABLET.DR (FP) PO SCH ×2 (09:28→21:23)
[2017-02-01] MEDS: PANTOPRAZOLE SODIUM 40MG/100 ML IVPB SCH ×2 (09:28→22:45)
[2017-02-01] MEDS: METOCLOPRAMIDE HCL INJECTION 10 MG/2 ML VIAL IVPB SCH ×3 (09:28→22:14)
[2017-02-01] MEDS: SERTRALINE HCL 25 MG TABLET (FP) PO SCH (09:29)
[2017-02-01] MEDS: RIFAXIMIN 550 MG TABLET (UD) PO SCH ×2 (09:29→21:24)
[2017-02-01] MEDS: HEPARIN NA (PORCINE) 5,000 UNITS/ML 1ML VIAL SQ SCH ×2 (09:29→21:23)
[2017-02-02] MEDS: D5-1/2NS+20 MEQ KCL - 1,000 ML IV SCH (00:30)
[2017-02-02] MEDS: METOCLOPRAMIDE HCL INJECTION 10 MG/2 ML VIAL IVPB SCH ×2 (02:36→09:52)
--- NOTE | 2017-02-02 08:37 | PN ---
Progress Note, Physician Chief Complaint: Abdominal Epigastric pain Nausea/ Vomiting History of Present Illness: continues with abdominal pain - Current Medication List Current Medications: Active Medications Acetaminophen (Tylenol -) 650 mg PO Q4H PRN PRN Reason: FEVER OR PAIN Last Admin: 01/31/17 10:10 Dose: 650 mg Bisacodyl (Dulcolax -) 10 mg PO BID [facility] Last Admin: 02/01/17 21:23 Dose: Not Given Heparin Sodium (Porcine) (Heparin -) 5,000 unit SQ BID [facility] Last Admin: 02/01/17 21:23 Dose: 5,000 unit Pantoprazole Sodium (Protonix 40mg Ivpb (Pre-Docked)) 100 mls @ 200 mls/hr IVPB BID [facility] Last Admin: 02/01/17 22:45 Dose: 200 mls/hr Potassium Chloride/Dextrose/Sod Cl (D5-1/2ns+20 Meq Kcl -) 1,000 mls @ 75 mls/ hr IV ASDIR [facility] Last Admin: 02/02/17 00:30 Dose: 75 mls/hr Metoclopramide HCl (Reglan Injection -) 10 mg IVPB Q6H-IV [facility] Last Admin: 02/02/17 02:36 Dose: 10 mg Morphine Sulfate (Morphine Injection -) 4 mg IVPUSH Q6H PRN PRN Reason: PAIN Last Admin: 02/01/17 21:20 Dose: 4 mg Ondansetron HCl (Zofran Injection) 4 mg IVPB Q6H PRN PRN Reason: NAUSEA Last Admin: 02/01/17 09:28 Dose: 4 mg Rifaximin (Xifaxan -) 550 mg PO BID [facility] Last Admin: 02/01/17 21:24 Dose: 550 mg Sertraline HCl (Zoloft -) 25 mg PO DAILY [facility] Last Admin: 02/01/17 09:29 Dose: 25 mg - Objective Vital Signs: Vital Signs Temperature 98.3 F 02/02/17 06:05 Pulse Rate 73 02/02/17 06:05 Respiratory Rate 18 02/02/17 06:05 Blood Pressure 120/74 02/02/17 06:05 O2 Sat by Pulse Oximetry (%) 99 02/01/17 21:00 Constitutional: Yes: Other (Ill Appearance) Cardiovascular: Yes: Regular Rate and Rhythm Respiratory: Yes: Regular Gastrointestinal: Yes: Normal Bowel Sounds, Soft, Hypoactive Bowel Sounds, Tenderness, Epigastrium Labs: CBC, BMP 01/30/17 06:00 01/30/17 06:00 INR, PTT INR 1.13 (0.82-1.09) 01/27/17 09:20 Problem List - Problems (1) Abdominal pain Assessment/Plan: On PPI, EGD showed duodenal inflammation. Code(s): R10.9 - UNSPECIFIED ABDOMINAL PAIN Qualifiers: Abdominal location: epigastric Qualified Code(s): R10.13 - Epigastric pain (2) Epigastric burning sensation Assessment/Plan: Morphine sulfate for pain management. On PPI and antiemetic as well. Gastro consult on case. Code(s): R10.13 - EPIGASTRIC PAIN (3) Nausea & vomiting Assessment/Plan: On Reglan, better controlled. Code(s): R11.2 - NAUSEA WITH VOMITING, UNSPECIFIED Assessment/Plan R/O Celiac, continue PPI, Reglan, Pain management, off NSAIDs, encourage PO intake as tolerated.
[2017-02-02] MEDS: PANTOPRAZOLE SODIUM 40MG/100 ML IVPB SCH (09:53)
[2017-02-02] MEDS: BISACODYL 5 MG TABLET.DR (FP) PO SCH ×2 (09:53→21:33)
[2017-02-02] MEDS: RIFAXIMIN 550 MG TABLET (UD) PO SCH ×2 (09:55→21:33)
[2017-02-02] MEDS: HEPARIN NA (PORCINE) 5,000 UNITS/ML 1ML VIAL SQ SCH ×2 (09:55→21:33)
[2017-02-02] MEDS ORDERED: PT OWN MED DRAWER 7, Y5N ONE ×2 (09:55→23:39)
[2017-02-02] MEDS: SERTRALINE HCL 25 MG TABLET (FP) PO SCH (09:57)
--- NOTE | 2017-02-02 11:47 | PATH ---
Surgical Pathology Report Patient Name: MICKY RAMOS [facility]. Rec. #: [id number] /Age/Gender: 1960 (Age: 56) / F Account: [id number] Location: [facility] MED/SURG Taken: 01/31/2017 Received: 02/01/2017 Reported: 02/02/2017 Physicians: Darci Kang M.D. Specimen(s) Received A: BX DUODENUM B: BX ANTRUM C: BX DUODENAL BULB D: BX TERMINAL ILEUM Clinical History Abdominal pain Duodenitis, normal colon Final Diagnosis A. DUODENUM, BIOPSY: DUODENAL MUCOSA WITH NO PATHOLOGIC CHANGES. NO HISTOLOGIC EVIDENCE OF GLUTEN SENSITIVE ENTEROPATHY (CELIAC SPRUE) IDENTIFIED. B. STOMACH, ANTRUM, BIOPSY: GASTRIC ANTRAL MUCOSA WITH NO PATHOLOGIC CHANGES. IMMUNOSTAIN FOR H. PYLORI IS NEGATIVE. C. DUODENUM, BULB, BIOPSY: DUODENAL MUCOSA WITH LYMPHOID AGGREGATE WITHIN LAMINA PROPRIA. NO ACTIVE INFLAMMATION IDENTIFIED. NO HISTOLOGIC EVIDENCE OF GLUTEN SENSITIVE ENTEROPATHY (CELIAC SPRUE) IDENTIFIED. D. TERMINAL ILEUM, BIOPSY: SMALL INTESTINAL MUCOSA WITH LYMPHOID AGGREGATES WITHIN LAMINA PROPRIA. NO ACTIVE INFLAMMATION IDENTIFIED. Comment: The findings may indicate some form of antigenic stimulation to the GI tract. Electronically Signed Matt Christopher M.D. Gross Description A. Received in formalin, labeled "duodenum" are 4 ospina, irregular portions of soft tissue ranging from 0.1-0.4 cm. in greatest dimension. The specimens are submitted in toto in one cassette. B. Received in formalin, labeled "biopsy antrum" is a ospina, irregular portion of soft tissue measuring 0.4 cm. in greatest dimension. The specimen is submitted in toto in one cassette. C. Received in formalin, labeled "duodenal bulb" is a ospina, irregular portion of soft tissue measuring 0.3 cm. in greatest dimension. The specimen is submitted in toto in one cassette. D. Received in formalin, labeled "biopsy terminal ileum" are 2 ospina, irregular portions of soft tissue measuring 0.4 and 0.5 cm. in greatest dimension. The specimens are submitted in toto in one cassette. 02/01/201702/01/2017
--- NOTE | 2017-02-02 17:54 | PN ---
Progress Note (short form) - Note Progress Note: No acute events Still with some abdominal pain Vital Signs Period Temp Pulse Resp BP Sys/Ferrell Pulse Ox Last 24 Hr 97.9 F-98.3 F 61-73 18-18 120-129/65-74 99 Abd soft, NT EGD- duodenal inflammation GI following No surgical intervention Thank you Problem List - Problems (1) Abdominal pain Code(s): R10.9 - UNSPECIFIED ABDOMINAL PAIN Qualifiers: Abdominal location: epigastric Qualified Code(s): R10.13 - Epigastric pain
[2017-02-02 18:07] LABS: TROPONIN I < 0.02 ng/ml (0.00-0.05)
[2017-02-02] MEDS: METOCLOPRAMIDE HCL 10 MG TABLET (FP) PO SCH (19:02)
[2017-02-02] MEDS: MAG HYDROX/AL HYDROX/SIMETH 30 ML UNIT-DOSE CUP PO SCH ×2 (19:02→21:33)
--- NOTE | 2017-02-02 19:12 | PN ---
GI Progress Note Subjective: Still with pain. MRI negative All tests to date negative - Objective Vital Signs: Vital Signs Temperature 98.7 F 02/02/17 18:50 Pulse Rate 74 02/02/17 18:50 Respiratory Rate 18 02/02/17 18:50 Blood Pressure 127/76 02/02/17 18:50 O2 Sat by Pulse Oximetry (%) 99 02/02/17 10:00 Constitutional: Thin Eyes: Yes: WNL HENT: Yes: Normocephalic Neck: Yes: Supple Cardiovascular: Yes: Regular Rate and Rhythm Respiratory: Yes: CTA Bilaterally Gastrointestinal Inspection: Yes: WNL ...Auscultate: Yes: Normoactive Bowel Sounds ...Palpate: Yes: Soft, Tenderness (diffuse) ...Percussion: Yes: Dullness Psychiatric: Yes: Other (anxious) Labs: CBC, BMP 01/30/17 06:00 01/30/17 06:00 INR, PTT INR 1.13 (0.82-1.09) 01/27/17 09:20 - ....Imaging MRI: Report Reviewed (as above) Assessment/Plan Abdominal wics-qmbo-al negative to date. Additionally, she has been worked up as an outpatient with no source of pain noted. Rec: Safe to discharge with outpatient f/u Will do tertiary w/u for problems like porphyria She may benefit from exploratory lap with biopsy of the peritoneum and poss SHAYNE as she has a large fibroid.
[2017-02-02] MEDS: PANTOPRAZOLE 40 MG TABLET (FP) PO SCH (21:33)
[2017-02-02] MEDS: ACETAMINOPHEN 325 MG TABLET (FP) PO PRN (21:34)
[2017-02-03] MEDS: METOCLOPRAMIDE HCL 10 MG TABLET (FP) PO SCH (06:12)
[2017-02-03] MEDS ORDERED: PT OWN MED DRAWER 7, Y5N ONE (09:45)
[2017-02-03] MEDS: MAG HYDROX/AL HYDROX/SIMETH 30 ML UNIT-DOSE CUP PO SCH (09:50)
[2017-02-03] MEDS: PANTOPRAZOLE 40 MG TABLET (FP) PO SCH (09:50)
[2017-02-03] MEDS: HEPARIN NA (PORCINE) 5,000 UNITS/ML 1ML VIAL SQ SCH (09:50)
[2017-02-03] MEDS: SERTRALINE HCL 25 MG TABLET (FP) PO SCH (09:51)
[2017-02-03] MEDS: BISACODYL 5 MG TABLET.DR (FP) PO SCH (09:54)
--- NOTE | 2017-02-03 13:09 | EKG ---
Test Reason : Blood Pressure : / mmHG Vent. Rate : 061 BPM Atrial Rate : 061 BPM P-R Int : 140 ms QRS Dur : 076 ms QT Int : 408 ms P-R-T Axes : 056 056 069 degrees QTc Int : 410 ms POOR DATA QUALITY, INTERPRETATION MAY BE ADVERSELY AFFECTED NORMAL SINUS RHYTHM NORMAL ECG WHEN COMPARED WITH ECG OF 27-JAN-2017 10:46, NO SIGNIFICANT CHANGE WAS FOUND Confirmed by EVY HANDY, NUNO ([id number]) on 02/03/2017 1:09:02 PM Referred By: DAY LANDA Confirmed By:NUNO RATLIFF MD
[2017-02-03 13:38] VITALS: BP 111/81; PULSE 80; TEMP 98.5
--- NOTE | 2017-02-03 13:54 | CONSULT ---
Consult - text type - Consultation Consultation Note: PM&R requested to evaluate patient but she had already been discharged when I arrived at her room.
== END 2017-02-03 14:35 | disposition home or self-care (01) | DRG 532 ==
LOC: JER 08:28 → JERBED 16:47 → J7W 20:38
PROVIDERS: ADMIT Family Medicine; ATTEND Family Medicine
PROC: 0DB98ZX Excision of Duodenum, Via Natural or Artificial Opening Endoscopic, Diagnostic (ICD-10-PCS; 2017-01-31)
PROC: 0DB68ZX Excision of Stomach, Via Natural or Artificial Opening Endoscopic, Diagnostic (ICD-10-PCS; 2017-01-31)
PROC: 0DBE8ZX Excision of Large Intestine, Via Natural or Artificial Opening Endoscopic, Diagnostic (ICD-10-PCS; principal; 2017-01-31 14:00)
DX: D25.1 Intramural leiomyoma of uterus (principal); R10.13 Epigastric pain; R11.2 Nausea with vomiting, unspecified; K21.9 Gastro-esophageal reflux disease without esophagitis; I67.1 Cerebral aneurysm, nonruptured
CPT/HCPCS: 36415; 74177-TC; 74182-TC; 76830-TC; 76856-TC; 80053; 81003; 82105; 82150; 82378; 82533; 82550; 83605; 83690; 84484; 84703; 85025; 85027; 85610; 85651; 86140; 86301; 86304; 88305-TC; 93005; 93010; 97116-GP; 97161-GP; 99283-25; J1644

== ENCOUNTER 2017-04-19 16:17 | Emergency (ER) | payer OTHER ==
[2017-04-19 16:34] VITALS: BMI 20.1
--- NOTE | 2017-04-19 19:50 | PDOC ---
History of Present Illness - General History Source: Patient Exam Limitations: No Limitations - History of Present Illness Initial Comments: 04/19/17 20:02 The patient is a 57 year old female, with a significant past medical history of GERD, clipped brain aneurysm who presents to the emergency department with epigastric abdominal pain and sore throat. The patient states her pain has been intermittent since January however today has progressively worsened today. Patient reports pain is 7/10 in severity and is associated with nausea however denies vomiting, fever or chills. Patient notes she has not followed up with primary dcotor or GI since January and presents here for further evaluation. Patient describes sore throat as mucus rolling down her throat. She notes generalized malaise. Note: Recent MRI in January revealed revealed 8 mm right hepatic lobe cyst. She denies chest pain, headache or dizziness. She denies diarrhea or constipation. She denies dysuria, frequency, urgency or hematuria. Allergies: ibuprofen and peanuts Past surgical history: Tubal ligation, aneurysm coiling Social history: None PCP: Dr. Rodriguez Tire Layer: Dr. Rosales <Neelima Salamanca - Last Filed: 04/19/17 20:02> - General History Source: Patient <ErastoKerwin jay - Last Filed: 04/19/17 22:16> - General Chief Complaint: Pain Stated Complaint: ABD PAIN Time Seen by Provider: 04/19/17 19:40 Past History <Neelima Salamanca - Last Filed: 04/19/17 20:02> - Past Medical History Anemia: No Asthma: No Cancer: No Cardiac Disorders: No CVA: No COPD: No CHF: No Dementia: No Diabetes: No GI Disorders: Yes (gerd) Disorders: No HTN: No Hypercholesterolemia: No Liver Disease: Yes Seizures: Yes (DURING CHILDHOOD) Thyroid Disease: No - Surgical History Abdominal Surgery: Yes (TUBAL LIGATION) Appendectomy: No Cardiac Surgery: No Cholecystectomy: No Lung Surgery: No Neurologic Surgery: Yes (aneurysm coiling) Orthopedic Surgery: No - Psycho/Social/Smoking Cessation Hx Anxiety: No Suicidal Ideation: No Smoking History: Never smoked Have you smoked in the past 12 months: No Hx Alcohol Use: No Drug/Substance Use Hx: No Substance Use Type: None Hx Substance Use Treatment: No <Kerwin Miller - Last Filed: 04/19/17 22:16> - Past Medical History Allergies/Adverse Reactions: Allergies Allergy/AdvReac Type Severity Reaction Status Date / Time ibuprofen [From Advil] Allergy Verified 01/27/17 08:55 peanut Allergy Verified 01/27/17 08:55 Home Medications: Ambulatory Orders Dexlansoprazole [Dexilant -] 60 mg PO DAILY 01/18/17 Metoclopramide HCl [Reglan -] 10 mg PO TID 01/27/17 L.acidoph,Paracasei, B.lactis [Probiotic] 1 each PO DAILY 04/19/17 Ondansetron [Zofran *Odt*] 4 mg SL TID #30 od.tablet 04/19/17 Pantoprazole Sodium [Protonix] 40 mg PO DAILY #30 tablet. 04/19/17 Phenobarb/Hyoscy/Atropine/Scop [ Tablet] 16.2 mg PO QID #30 tablet 04/19 Vitamin B Complex [B Complex] 1 tab PO DAILY 04/19/17 Review of Systems - Review of Systems Able to Perform ROS?: Yes Comments:: 04/19/17 20:02 CONSTITUTIONAL: Absent: fever, no chills, no fatigue EYES: Absent: visual changes ENT: +sore throar. Absent: ear pain, CARDIOVASCULAR: Absent: chest pain, no palpitations RESPIRATORY: Absent: cough, no SOB GI: +epigastric abdominal pain. Nausea. Absent: no vomiting, no constipation, no diarrhea GENITOURINARY: Absent: dysuria, no frequency, no hematuria MUSCULOSKELETAL: Absent: back pain, no arthralgia, no myalgia SKIN: Absent: rash <Neelima Salamanca - Last Filed: 04/19/17 20:02> *Physical Exam - Vital Signs Last Vital Signs Temp Pulse Resp BP Pulse Ox 98.2 F 81 18 135/80 100 04/19/17 16:32 04/19/17 16:32 04/19/17 16:32 04/19/17 16:32 04/19/17 16:32 - Physical Exam Comments: 04/19/17 20:02 GENERAL: +Mild distress. Well-appearing, well-nourished. HEENT: Normocephalic, atraumatic. PERRL, EOM intact. CARDIOVASCULAR: Normal S1, S2. Regular rate and rhythm. PULMONARY: Clear to auscultation bilaterally. ABDOMEN: Soft, non-distended, non-tender. EXTREMITIES: Normal ROM in all four extremities. No gross deformities. SKIN: Warm, dry. No rash NEUROLOGICAL: No focal neurological deficits. <Neelima Salamanca - Last Filed: 04/19/17 20:02> - Vital Signs Last Vital Signs Temp Pulse Resp BP Pulse Ox 98.2 F 81 18 135/80 100 04/19/17 16:32 04/19/17 16:32 04/19/17 16:32 04/19/17 16:32 04/19/17 16:32 <Kerwin Miller - Last Filed: 04/19/17 22:16> ED Treatment Course - LABORATORY CBC & Chemistry Diagram: 04/19/17 20:59 04/19/17 20:59 <Kerwin Miller - Last Filed: 04/19/17 22:16> Medical Decision Making - Medical Decision Making 04/19/17 22:15 Dr. Miller: The scribe's documentation has been prepared under my direction and personally reviewed by me in its entirery. I confirm that the note above accurately reflects all work, treatment, procedures, and medical decision making performed by me. Patient's labs return to be Stable. Patient advised to follow with GI as soon as possible. Medication sent to the pharmacy for treatment. <Kerwin Miller - Last Filed: 04/19/17 22:16> *DC/Admit/Observation/Transfer - Attestations Scribe Attestion: 04/19/17 20:02 Documentation prepared by Neelima Salamanca, acting as outside medical sales representative for Kerwin Miller MD/DO. <Neelima Salamanca - Last Filed: 04/19/17 20:02> - Discharge Dispostion Admit: No <Kerwin Miller - Last Filed: 04/19/17 22:16> Diagnosis at time of Disposition: Epigastric burning sensation Abdominal pain Qualifiers: Abdominal location: epigastric Qualified Code(s): R10.13 - Epigastric pain - Discharge Dispostion Disposition: HOME Condition at time of disposition: Stable - Referrals Referrals: Rustam Jordan MD [Primary Care Provider] -
[2017-04-19] MEDS ORDERED: PANTOPRAZOLE SODIUM 40 MG in SODIUM CHLORIDE 100 ML IVPB ONE (19:52)
[2017-04-19] MEDS ORDERED: SODIUM CHLORIDE 1,000 ML IV STA (19:52)
[2017-04-19] MEDS ORDERED: PHENobarbital 20 MG/5 ML UNIT-DOSE CUP PO ONE (19:53)
[2017-04-19] MEDS ORDERED: PANTOPRAZOLE SODIUM 100 ML IVPB ONE (20:44)
[2017-04-19] MEDS ORDERED: PHENobarbital 20 MG/5 ML UNIT-DOSE CUP ONE (20:44)
[2017-04-19 21:14] LABS: BASOPHIL 0.7 % (0-2.0); EOSINOPHIL 0.8 % (0-4.5); MCH 30.6 pg (25.7-33.7); MCHC 33.7 g/dl (32.0-36.0); MEAN CELL VOLUME 90.8 fl (80-96); MEAN PLT VOLUME 10.4 fl (7.5-11.1); NEUTROPHILS 47.7 % (42.8-82.8); PLATELET COUNT 218 K/MM3 (134-434); WHITE BLOOD COUNT 6.6 K/mm3 (4.0-10.0)
[2017-04-19 21:26] LABS: INR 1.15 (0.82-1.09); PROTHROMBIN TIME (PATIENT) 12.7 SEC (9.98-11.88)
[2017-04-19 21:31] LABS: URINE APPEARANCE CLEAR; URINE BILIRUBIN NEGATIVE (NEGATIVE); URINE BLOOD NEGATIVE (NEGATIVE); URINE COLOR STRAW; URINE GLUCOSE (UA) NEGATIVE (NEGATIVE); URINE KETONE NEGATIVE (NEGATIVE); URINE LEUK ESTERASE NEGATIVE (NEGATIVE); URINE NITRITE NEGATIVE (NEGATIVE); URINE PROTEIN NEGATIVE (NEGATIVE); URINE UROBILINOGEN NEGATIVE mg/dL (0.2-1.0)
[2017-04-19 21:56] LABS: ALBUMIN 3.4 g/dl (3.4-5.0); AMYLASE 73 U/L (25-115); ANION GAP 5 (8-16); CALCIUM 8.7 mg/dL (8.5-10.1); CO2 30 mmol/L (21-32); GLUCOSE,RANDOM 90 mg/dL (74-106); MAGNESIUM 2.1 mg/dL (1.8-2.4)
[2017-04-19 21:58] LABS: ALK PHOS 91 U/L (45-117); BILIRUBIN,TOTAL 0.4 mg/dL (0.2-1.0); CREATININE 0.6 mg/dL (0.55-1.02); SGOT/AST 24 U/L (15-37); SGPT/ALT 31 U/L (12-78)
[2017-04-19 22:22] VITALS: BP 124/75; PULSE 75; TEMP 98.1
== END 2017-04-19 22:29 | disposition home or self-care (01) ==
LOC: JER 16:17
PROC: 3E033GC Introduction of Other Therapeutic Substance into Peripheral Vein, Percutaneous Approach (ICD-10-PCS; principal; 2017-04-19)
DX: R10.13 Epigastric pain (principal); K21.9 Gastro-esophageal reflux disease without esophagitis; Z86.79 Personal history of other diseases of the circulatory system; Z88.6 Allergy status to analgesic agent; Z91.010 Allergy to peanuts
CPT/HCPCS: 36415; 80053; 81003; 82150; 83690; 83735; 85025; 85610; 87086; 96365; 99284-25

== ENCOUNTER → 2017-08-03 | Day surgery (SDC) | payer OTHER ==
--- NOTE | 2017-08-05 12:14 | PATH ---
Surgical Pathology Report Patient Name: MICKY RAMOS [facility]. Rec. #: [id number] /Age/Gender: 1960 (Age: 57) / F Account: [id number] Location: [facility] Taken: 08/03/2017 Received: 08/03/2017 Reported: 08/05/2017 Physicians: Guera Gibson M.D. Specimen(s) Received A: LEFT BREAST WITH CALCIFICATIONS B: LEFT BREAST WITHOUT CALCIFICATIONS Clinical History Nonpalpable lesion Mammographic findings: Microcalcification, suspicious Final Diagnosis A. BREAST, LEFT, WITH CALCIFICATIONS, STEREOTACTIC CORE BIOPSY: BREAST TISSUE WITH FIBROCYSTIC CHANGES INCLUDING STROMAL FIBROSIS, USUAL DUCTAL HYPERPLASIA, MICROCYSTS, APOCRINE METAPLASIA, AND MICROCALCIFICATIONS WITHIN BENIGN DUCTS. B. BREAST, LEFT, WITHOUT CALCIFICATIONS, STEREOTACTIC CORE BIOPSY: BENIGN BREAST TISSUE WITH STROMAL FIBROSIS, LARGE ECTATIC DUCTS WITH MILD PERIDUCTAL CHRONIC INFLAMMATION, AND MICROCALCIFICATIONS WITHIN BENIGN DUCTS. Electronically Signed Beverly Christianson M.D. Gross Description A. Received in formalin labeled "left breast with calcifications," are 2 ospina-yellow, cylindrical portions of fibroadipose tissue averaging 2.7 cm in length and 0.3 cm in diameter. The specimens are submitted in toto in one cassette. B. Received in formalin labeled "left breast without calcifications," are 5 ospina-yellow, cylindrical portions of fibroadipose tissue ranging from 2.0-2.7 cm in length and averaging 0.3 cm in diameter. The specimens are submitted in toto in one cassette. Time to formalin fixation: 5 minutes Total formalin fixation time: Approximately 6 hours. 08/03/201708/03/2017
== END | disposition home or self-care (01) ==
LOC: FMAMMOTONE 11:23
PROVIDERS: ATTEND Family Medicine
PROC: 0HBU3ZX Excision of Left Breast, Percutaneous Approach, Diagnostic (ICD-10-PCS; principal; 2017-08-03)
DX: N60.32 Fibrosclerosis of left breast (principal); N60.82 Other benign mammary dysplasias of left breast; N60.12 Diffuse cystic mastopathy of left breast; N64.89 Other specified disorders of breast; R92.1 Mammographic calcification found on diagnostic imaging of breast
CPT/HCPCS: 19081; 87899; 88305-TC; A4648

== ENCOUNTER 2018-01-22 00:31 | Emergency (ER) | payer SELFPAY ==
[2018-01-22] MEDS ORDERED: PHENAZOPYRIDINE HCL 100 MG TABLET (FP) PO ONE (00:47)
--- NOTE | 2018-01-22 00:47 | PDOC ---
History of Present Illness - General Chief Complaint: Urinary Problem Stated Complaint: R/O UTI Time Seen by Provider: 01/22/18 00:36 History Source: Patient Exam Limitations: No Limitations - History of Present Illness Travel History: No Initial Comments: 01/22/18 01:48 Best Contact:[phone] Pmhx: 2017:Anerysm /sz Pshx:N/.A Allergies:Advil/swelling 57-year-old female presents to the ER complaining of urinary frequency/urgency/ hesitancy without hematuria, fever/chills, nausea/vomiting, chest pain, shortness of breath, flank pains, abdominal pains. Patient states feels like her previous UTIs. Patient denied take anything for the discomfort which started yesterday. Past History - Past Medical History Allergies/Adverse Reactions: Allergies Allergy/AdvReac Type Severity Reaction Status Date / Time ibuprofen [From Advil] Allergy Verified 01/22/18 00:46 peanut Allergy Verified 01/22/18 00:46 Home Medications: Ambulatory Orders Nitrofurantoin Monohyd/M-Cryst [Macrobid -] 100 mg PO BID #14 capsule 01/22/18 Omeprazole Magnesium [Prilosec Otc] 20 mg PO DAILY 01/22/18 Anemia: No Asthma: No Cancer: No Cardiac Disorders: No CVA: No COPD: No CHF: No Dementia: No Diabetes: No GI Disorders: Yes (gerd) Disorders: No HTN: No Hypercholesterolemia: No Liver Disease: Yes Seizures: Yes (DURING CHILDHOOD) Thyroid Disease: No - Surgical History Abdominal Surgery: Yes (TUBAL LIGATION) Appendectomy: No Cardiac Surgery: No Cholecystectomy: No Lung Surgery: No Neurologic Surgery: Yes (aneurysm coiling) Orthopedic Surgery: No - Immunization History Immunization Up to Date: Yes - Suicide/Smoking/Psychosocial Hx Smoking History: Never smoked Have you smoked in the past 12 months: No Hx Alcohol Use: No Drug/Substance Use Hx: No Substance Use Type: None Hx Substance Use Treatment: No Review of Systems - Review of Systems Able to Perform ROS?: Yes Comments:: 01/22/18 01:47 CONSTITUTIONAL: Absent: fever, chills, diaphoresis, generalized weakness, malaise, loss of appetite HEENT: Absent: rhinorrhea, nasal congestion, throat pain, throat swelling, difficulty swallowing, mouth swelling, ear pain, eye pain, visual Changes CARDIOVASCULAR: Absent: chest pain, loss of consciousness, palpitations, irregular heart rate, peripheral edema RESPIRATORY: Absent: cough, shortness of breath, dyspnea with exertion, orthopnea, wheezing, stridor, hemoptysis GASTROINTESTINAL: Absent: abdominal pain, abdominal distension, nausea, vomiting, diarrhea, constipation, melena, hematochezia GENITOURINARY: +dysuria, frequency, urgency, hesitancy Absent: hematuria, flank pain, genital pain MUSCULOSKELETAL: Absent: myalgia, arthralgia, joint swelling SKIN: Absent: rash, itching, pallor HEMATOLOGIC/IMMUNOLOGIC: Absent: easy bleeding, easy bruising, lymphadenopathy, frequent infections Is the patient limited Sammarinese proficient: No *Physical Exam - Physical Exam Comments: 01/22/18 01:48 GENERAL: Well developed, well nourished. Awake and alert. No acute distress. HEENT: Normocephalic, atraumatic. PERRLA, EOMI. No conjunctival pallor. Sclera are non- icteric. Moist mucous membranes. Oropharynx is clear. NECK: Supple. Full ROM. No JVD. Carotid pulses 2+ and symmetric, without bruits. No thyromegaly. No lymphadenopathy. CARDIOVASCULAR: Regular rate and rhythm. No murmurs, rubs, or gallops. Distal pulses are 2+ and symmetric. PULMONARY: No evidence of respiratory distress. Lungs clear to auscultation bilaterally. No wheezing, rales or rhonchi. ABDOMINAL: Soft. Non-tender. Non-distended. No rebound or guarding. No organomegaly. Normoactive bowel sounds. MUSCULOSKELETAL Normal range of motion at all joints. No bony deformities or tenderness. No CVA tenderness. EXTREMITIES: No cyanosis. No clubbing. No edema. No calf tenderness. SKIN: Warm and dry. Normal capillary refill. No rashes. No jaundice. *DC/Admit/Observation/Transfer Diagnosis at time of Disposition: UTI (urinary tract infection) Qualifiers: Urinary tract infection type: acute cystitis Hematuria presence: without hematuria Qualified Code(s): N30.00 - Acute cystitis without hematuria - Discharge Dispostion Disposition: HOME Condition at time of disposition: Stable Decision to Admit order: No - Prescriptions Prescriptions: Nitrofurantoin Monohyd/M-Cryst [Macrobid -] 100 mg PO BID #14 capsule - Referrals Referrals: Rustam Jordan MD [Primary Care Provider] - Huong Estrada MD [Staff Physician] - - Patient Instructions Printed Discharge Instructions: DI for Urinary Tract Infection (UTI) Additional Instructions: Increase fluids Antibiotics until completion Follow with your doctor or the steam pipe fitter listed on your discharge Return back to the ER for severe/persistent or worsening symptoms - Post Discharge Activity
[2018-01-22 00:55] VITALS: BP 125/65; PULSE 82; TEMP 97.4; BMI 19.9
[2018-01-22 01:09] LABS: URINE APPEARANCE CLEAR; URINE BILIRUBIN NEGATIVE (<2.0 mg/dL); URINE COLOR COLORLESS; URINE GLUCOSE (UA) NEGATIVE (NEGATIVE); URINE KETONE NEGATIVE (NEGATIVE); URINE NITRITE NEGATIVE (NEGATIVE); URINE PROTEIN NEGATIVE (NEGATIVE); URINE UROBILINOGEN NEGATIVE mg/dL (0.2-1.0)
[2018-01-22 01:13] LABS: URINE LEUK ESTERASE 1+ (NEGATIVE)
[2018-01-22] MEDS ORDERED: PHENAZOPYRIDINE HCL 100 MG TABLET (FP) ONE (01:19)
[2018-01-22] MEDS ORDERED: NITROFURANTOIN MACROCRYSTAL 50 MG CAPSULE (FP) ONE (01:43)
[2018-01-22] MEDS ORDERED: NITROFURANTOIN MACROCRYSTAL 50 MG CAPSULE (FP) PO SCH (01:45)
== END 2018-01-22 01:56 | disposition home or self-care (01) ==
LOC: JER 00:31
DX: N30.00 Acute cystitis without hematuria (principal); K21.9 Gastro-esophageal reflux disease without esophagitis
CPT/HCPCS: 81003; 81015; 99281-25

== ENCOUNTER 2021-08-05 15:05 | Emergency (ER) | payer OTHER ==
[2021-08-05 15:12] VITALS: BP 149/87; PULSE 73; TEMP 97.9; BMI 21.7
[2021-08-05] MEDS ORDERED: LIDOCAINE 5% TOPICAL PATCH TP ONE (15:42)
[2021-08-05] MEDS ORDERED: LIDOCAINE 5% TOPICAL PATCH ONE (15:47)
[2021-08-05] MEDS ORDERED: LIDOCAINE PATCH REMOVAL MC SCH (22:00)
== END 2021-08-05 17:04 | disposition home or self-care (01) ==
LOC: JERFT 15:05
DX: M54.05 Panniculitis affecting regions of neck and back, thoracolumbar region (principal)
CPT/HCPCS: 72100-TC-FY; 99283-25